=== PATIENT | female | born 1990 | race Caucasian/White ===

== ENCOUNTER 2017-10-01 18:27 | Emergency (ER) | payer OTHER ==
--- NOTE | 2017-10-01 18:43 | PDOC ---
Rapid Medical Evaluation Time Seen by Provider: 10/01/17 18:40 Medical Evaluation: Allergies Allergy/AdvReac Type Severity Reaction Status Date / Time No Known Allergies Allergy Verified 06/14/16 14:51 10/01/17 18:40 Pt presents to the ED: vag bleeding since this am, 17 weeks , sees Dr. Ma, c/o ruq pain Pt on brief exam: vss Pt ordered for: cbc, comp, t &s, u/s, ua, ucx Pt to proceed to the ED Discharge Disposition - Diagnosis Vaginal bleeding before 22 weeks gestation - Referrals - Patient Instructions - Post Discharge Activity
[2017-10-01 18:44] VITALS: BP 115/72; PULSE 70; TEMP 98.4; BMI 25.0
--- NOTE | 2017-10-01 22:26 | PDOC ---
History of Present Illness - History of Present Illness Initial Comments: 10/01/17 22:26 Patient is a 27-year-old ,[place] citizen speaking, female,, who presents to the emergency department for vaginal bleeding today. Patient states that her vaginal bleeding flows continuously and not only when she wipes. Patient states blood flow is heavier than when it first started. She denies blood clots. Her LMP was on 09/08/17. She has an appt on 10/05 for an and 10/16 regular appt. She denies any current abdominal pain or tenderness. Patient denies other complaints. 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 SUPERVISOR: Araceli Ma PMHx: migraines <Daisy Matthew - Last Filed: 10/01/17 22:37> <Inga Mccracken - Last Filed: 10/02/17 00:03> - General Chief Complaint: Vaginal Bleeding Stated Complaint: VAGINAL BLEEDING/17 WKS Time Seen by Provider: 10/01/17 18:40 Past History <Daisy Matthew - Last Filed: 10/01/17 22:37> - Immunization History Immunization Up to Date: Yes - Suicide/Smoking/Psychosocial Hx Smoking Status: No Smoking History: Never smoked Have you smoked in the past 12 months: No Number of Cigarettes Smoked Daily: 0 Cigars Per Day: 0 Hx Alcohol Use: No Drug/Substance Use Hx: No Substance Use Type: None <Inga Mccracken - Last Filed: 10/02/17 00:03> - Past Medical History Allergies/Adverse Reactions: Allergies Allergy/AdvReac Type Severity Reaction Status Date / Time No Known Allergies Allergy Verified 10/01/17 18:40 Home Medications: Ambulatory Orders No Home Medications 0 dose .ROUTE UTDICT 05/14/13 Ibuprofen 800 mg PO TID PRN #20 tablet 06/14/16 Review of Systems - Review of Systems Comments:: 10/01/17 22:26 CONSTITUTIONAL: Absent: fever, no chills, no fatigue EYES: Absent: visual changes ENT: Absent: ear pain, no sore throat CARDIOVASCULAR: Absent: chest pain, no palpitations RESPIRATORY: Absent: cough, no SOB GI: Absent: abdominal pain, no nausea, no vomiting, no constipation, no diarrhea GENITOURINARY: Absent: dysuria, no frequency, no hematuria FABRIC COATING SUPERVISOR: Present: vaginal bleeding MUSCULOSKELETAL: Absent: back pain, no arthralgia, no myalgia SKIN: Absent: rash NEURO: Absent: headache <Daisy Matthew - Last Filed: 10/01/17 22:37> *Physical Exam - Vital Signs Last Vital Signs Temp Pulse Resp BP Pulse Ox 98.4 F 70 19 115/72 100 10/01/17 18:41 10/01/17 18:41 10/01/17 18:41 10/01/17 18:41 10/01/17 18:41 - Physical Exam Comments: 10/01/17 22:26 GENERAL: Well-appearing, well-nourished. No apparent distress. HEENT: Normocephalic, atraumatic. PERRL, EOM intact. CARDIOVASCULAR: Normal S1, S2. Regular rate and rhythm. PULMONARY: Clear to auscultation bilaterally. ABDOMEN: Soft, non-distended, non-tender. EXTREMITIES: Normal ROM in all four extremities. No gross deformities. SKIN: Warm, dry. No rash NEUROLOGICAL: No focal neurological deficits. <Daisy Matthew - Last Filed: 10/01/17 22:37> - Vital Signs Last Vital Signs Temp Pulse Resp BP Pulse Ox 98.4 F 70 19 115/72 100 10/01/17 18:41 10/01/17 18:41 10/01/17 18:41 10/01/17 18:41 10/01/17 18:41 <Inga Mccracken - Last Filed: 10/02/17 00:03> ED Treatment Course - LABORATORY CBC & Chemistry Diagram: 10/01/17 21:30 10/01/17 21:30 - RADIOLOGY Radiograph Interpretation: 10/01/17 22:39 US Impression: Single viable intrauterine gestation (17 weeks 2days) Reported by: Fabrizio Juares MD <Daisy Matthew - Last Filed: 10/01/17 22:37> - LABORATORY CBC & Chemistry Diagram: 10/01/17 21:30 10/01/17 21:30 <Inga Mccracken - Last Filed: 10/02/17 00:03> *DC/Admit/Observation/Transfer - Attestations Scribe Attestion: 10/01/17 22:26 Documentation prepared by Daisy Matthew, acting as medical art therapist for Inga Mccracken MD. <Daisy Matthew - Last Filed: 10/01/17 22:37> <Inga Mccracken - Last Filed: 10/02/17 00:03> Diagnosis at time of Disposition: Vaginal bleeding before 22 weeks gestation - Discharge Dispostion Disposition: HOME Condition at time of disposition: Good - Referrals Referrals: Araceli Ma MD [Primary Care Provider] - - Patient Instructions Printed Discharge Instructions: DI for Threatened Additional Instructions: Please keep your ultrasound appointment on the Oct 05 and see your employee operations examiner at [facility] Print Language: MAORI - Post Discharge Activity
[2017-10-01 22:27] LABS: ALBUMIN 3.3 g/dl (3.4-5.0); ALK PHOS 48 U/L (45-117); ANION GAP 7 (8-16); BILIRUBIN,TOTAL 0.5 mg/dL (0.2-1.0); BLOOD UREA NITROGEN 8 mg/dL (7-18); CALCIUM 8.4 mg/dL (8.5-10.1); CHLORIDE 107 mmol/L (98-107); CO2 23 mmol/L (21-32); CREATININE 0.4 mg/dL (0.55-1.02); GLUCOSE,RANDOM 76 mg/dL (74-106); POTASSIUM 3.7 mmol/L (3.5-5.1); SGOT/AST 14 U/L (15-37); SGPT/ALT 22 U/L (12-78); SODIUM 137 mmol/L (136-145); TOT PROT 6.9 g/dl (6.4-8.2)
[2017-10-01 22:40] LABS: BASO % 0.5 % (0-2.0); EOS % 1.5 % (0-4.5); HEMATOCRIT 36.4 % (32.4-45.2); HEMOGLOBIN 12.5 GM/dL (10.7-15.3); LYMPH % 24.5 % (8-40); MCH 29.8 pg (25.7-33.7); MCHC 34.2 g/dl (32.0-36.0); MEAN CELL VOLUME 87.2 fl (80-96); MEAN PLT VOLUME 9.9 fl (7.5-11.1); MONO % 5.7 % (3.8-10.2); NEUT % 67.8 % (42.8-82.8); PLATELET COUNT 188 K/MM3 (134-434); RBC 4.18 M/mm3 (3.60-5.2); RDW 13.9 % (11.6-15.6); WHITE BLOOD COUNT 9.6 K/mm3 (4.0-10.0)
[2017-10-02 00:32] LABS: URINE APPEARANCE SLCLOUDY; URINE BILIRUBIN NEGATIVE (NEGATIVE); URINE BLOOD 2+ (NEGATIVE); URINE COLOR LTYELLOW; URINE GLUCOSE (UA) NEGATIVE (NEGATIVE); URINE KETONE TRACE (NEGATIVE); URINE LEUK ESTERASE NEGATIVE (NEGATIVE); URINE NITRITE NEGATIVE (NEGATIVE); URINE PROTEIN NEGATIVE (NEGATIVE); URINE UROBILINOGEN NEGATIVE mg/dL (0.2-1.0)
[2017-10-02 01:01] LABS: EPI CELLS FEW /HPF (FEW); URINE HYALINE CAST 1 /lpf; URINE MUCUS RARE
== END 2017-10-02 04:53 | disposition home or self-care (01) ==
LOC: JER 18:27
DX: O26.892 Other specified pregnancy related conditions, second trimester (principal); O46.92 Antepartum hemorrhage, unspecified, second trimester; Z3A.17 17 weeks gestation of pregnancy
CPT/HCPCS: 36415; 76801-TC; 80053; 81003; 81015; 83735; 85025; 86850; 86900; 86901; 87086; 99282-25

== ENCOUNTER 2018-03-05 08:21 | Emergency (ER) | payer OTHER ==
[2018-03-05 08:28] VITALS: TEMP 98.1; BMI 27.9
--- NOTE | 2018-03-05 08:32 | PDOC ---
History of Present Illness - General Chief Complaint: Headache Stated Complaint: HEADACHE, ARM NUMBNESS (BOTH) 27 WKS Time Seen by Provider: 03/05/18 08:31 - History of Present Illness Initial Comments: 03/05/18 08:31 27 yo Taiwanese speaking F, at 37 wga, LMP 09/08/17, and h/o migraines who p/ w HUYNH. 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 Patient states that beginning Sunday (03-04-18) she has been experiencing intermittent HUYNH daily lasting 3 hours and improving with supine positioning in bed. HUYNH reproducible with erect positioning. Patient states that it feels that "marble is rolling around in her head," but denies vertiginous sensation.HUYNH is dull frontal HUYNH with radiation to posterior head in holocranial distribution. HUYNH associated with tingling in left upper extremity and radiates from shoulder down to arm. Patient states that this has happened before and she has been seen in ED (12/06/15) with negative workup. No associated weakness, convulsions, photophobia, phonophobia, scintillating scotomas, or floaters in visual travis. Has not attempted OTC symptom control. Nml movement. + Intermittent dysuria. Denies F/C, cough, neck pain/stiffness, tinnitus, hearing loss, vision change, N /V, CP, SOB, abdominal pain, vaginal bleeding/discharge/itching, diarrhea, constipation, BPR, urinary complaints, hematuria, weakness, lightheadedness, sensory changes. PMHx: as noted above. 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 Denies h/o head trauma, seizure disorder, CVA/TIA. Does not follow with neurology, or take ppx migraine medication. Surgical: 2 prior C-sections ROS: as noted above SHx: Denies Etoh, tobacco, IVDA, Caffeine. Allergies: NKDA Past History - Past Medical History Allergies/Adverse Reactions: Allergies Allergy/AdvReac Type Severity Reaction Status Date / Time No Known Allergies Allergy Verified 03/05/18 08:23 Home Medications: Ambulatory Orders No122/Iron/Folic Acid [ Multi Tablet] 1 each PO DAILY 03/05/18 COPD: No Other medical history: MIGRAINES - Immunization History Immunization Up to Date: Yes - Suicide/Smoking/Psychosocial Hx Smoking Status: No Smoking History: Never smoked Have you smoked in the past 12 months: No Number of Cigarettes Smoked Daily: 0 Cigars Per Day: 0 Information on smoking cessation initiated: No Hx Alcohol Use: No Drug/Substance Use Hx: No Substance Use Type: None Review of Systems - Review of Systems Comments:: 03/05/18 08:31 GENERAL/CONSTITUTIONAL: No fever or chills. No weakness. HEAD, EYES, EARS, NOSE AND THROAT: No change in vision. No ear pain or discharge. No sore throat. CARDIOVASCULAR: No chest pain or shortness of breath RESPIRATORY: No cough, wheezing, or hemoptysis. GASTROINTESTINAL: No nausea, vomiting, diarrhea or constipation. GENITOURINARY: No dysuria, frequency, or change in urination. MUSCULOSKELETAL: No joint or muscle swelling or pain. No neck or back pain. SKIN: No rash NEUROLOGIC: + HUYNH, and change in sensation/LUE. No vertigo, loss of consciousness , or change in strength/sensation. ENDOCRINE: No increased thirst. No abnormal weight change HEMATOLOGIC/LYMPHATIC: No anemia, easy bleeding, or history of blood clots. ALLERGIC/IMMUNOLOGIC: No hives or skin allergy. 06 *Physical Exam - Vital Signs Last Vital Signs Temp Pulse Resp BP Pulse Ox 98.1 F 70 18 110/70 100 03/05/18 08:23 03/05/18 08:23 03/05/18 08:23 03/05/18 08:23 03/05/18 08:23 - Physical Exam Comments: 03/05/18 08:31 GENERAL: Awake, alert, and fully oriented, in no acute distress HEAD: No signs of trauma, normocephalic, atraumatic EYES: PERRLA, EOMI, sclera anicteric, conjunctiva clear ENT: Auricles normal inspection, hearing grossly normal, nares patent, oropharynx clear without exudates. Moist mucosa NECK: Normal ROM, supple, no lymphadenopathy, JVD, or masses LUNGS: No distress, speaks full sentences, clear to auscultation bilaterally HEART: Regular rate and rhythm, normal S1 and S2, no murmurs, rubs or gallops, peripheral pulses normal and equal bilaterally. ABDOMEN: Soft, nontender, normoactive bowel sounds. No guarding, no rebound. No masses EXTREMITIES : Normal inspection, Normal range of motion, no edema. No clubbing or cyanosis. NEUROLOGICAL: Cranial nerves II through XII grossly intact. Normal speech, normal gait, no focal sensorimotor deficits. Absent dysmetria on FTN. Nml AJ, and HTS. SKIN: Warm, Dry, normal turgor, no rashes or lesions noted ED Treatment Course - LABORATORY CBC & Chemistry Diagram: 03/05/18 09:11 03/05/18 09:11 Medical Decision Making - Medical Decision Making 03/05/18 08:32 27 yo Taiwanese speaking F, , LMP 09/08/17, and h/o migraines who p/w frontal- occipital HUYNH x 2 days. VSS, AF, A&Ox3. Low suspicion of preclampsia. BP 110/70, and patient with absent focal neuro deficits, or other evidence of end organ dysfunction. Absent nuchal findings or suspicion of meningitis. HUYNH most likely 2 /2 tension type HUYNH vs. migraine without aura. Consistent with HUYNH's in past. ED Course: CBC, CMP, BHCG 03/05/18 09:53 CBC: Unremarkable 03/05/18 10:54 CMP: Unremarkable HC UA: Neg HUYNH slightly improved. VSS. Patient stable for d/c with return precautions. Will precede to L&D for monitoring. 03/05/18 11:02 Spoke to L&D. Patient stable to send upstairs. *DC/Admit/Observation/Transfer Diagnosis at time of Disposition: Tension type headache, unspecified Qualifiers: Headache chronicity pattern: acute headache Intractability: not intractable Qualified Code(s): G44.209 - Tension-type headache, unspecified, not intractable - Discharge Dispostion Condition at time of disposition: Stable Decision to Admit order: No - Referrals Referrals: Manuel Mchugh DO [Staff Physician] - - Patient Instructions Printed Discharge Instructions: DI for Hormonal and Tension Headaches Additional Instructions: Please return to the emergency department with any new or worsening symptoms or concerns. Please follow up with your primary care physician within 72 hours. Please follow up with neurology within 1-2 weeks. - Post Discharge Activity - Attestations Physician Attestion: 03/05/18 08:32 I attest to the information provided in this note.
[2018-03-05] MEDS ORDERED: ACETAMINOPHEN 325 MG TABLET (FP) PO ONE (08:55)
[2018-03-05] MEDS ORDERED: ACETAMINOPHEN 325 MG TABLET (FP) ONE (09:18)
[2018-03-05 09:26] LABS: BASO % 0.5 % (0-2.0); EOS % 1.4 % (0-4.5); HEMOGLOBIN 11.7 GM/dL (10.7-15.3); LYMPH % 17.6 % (8-40); MCH 28.8 pg (25.7-33.7); MCHC 34.4 g/dl (32.0-36.0); MEAN CELL VOLUME 83.7 fl (80-96); MEAN PLT VOLUME 10.1 fl (7.5-11.1); MONO % 6.5 % (3.8-10.2); PLATELET COUNT 177 K/MM3 (134-434); RBC 4.06 M/mm3 (3.60-5.2); RDW 14.2 % (11.6-15.6); WHITE BLOOD COUNT 8.5 K/mm3 (4.0-10.0)
[2018-03-05] MEDS ORDERED: METOCLOPRAMIDE HCL 10 MG TABLET (FP) PO ONE ×2 (09:45→10:16)
[2018-03-05 09:53] LABS: URINE APPEARANCE SLCLOUDY; URINE BILIRUBIN NEGATIVE (<2.0 mg/dL); URINE BLOOD NEGATIVE (NEGATIVE); URINE COLOR LTYELLOW; URINE GLUCOSE (UA) NEGATIVE (NEGATIVE); URINE KETONE NEGATIVE (NEGATIVE); URINE LEUK ESTERASE NEGATIVE (NEGATIVE); URINE NITRITE NEGATIVE (NEGATIVE); URINE PROTEIN NEGATIVE (NEGATIVE); URINE UROBILINOGEN NEGATIVE mg/dL (0.2-1.0)
[2018-03-05 09:54] LABS: ALBUMIN 2.7 g/dl (3.4-5.0); ANION GAP 11 (8-16); BLOOD UREA NITROGEN 4 mg/dL (7-18); CALCIUM 8.3 mg/dL (8.5-10.1); CHLORIDE 108 mmol/L (98-107); CO2 18 mmol/L (21-32); GLUCOSE,RANDOM 77 mg/dL (74-106); POTASSIUM 3.8 mmol/L (3.5-5.1); SODIUM 137 mmol/L (136-145)
[2018-03-05 09:58] LABS: ALK PHOS 210 U/L (45-117); BILIRUBIN,TOTAL 0.4 mg/dL (0.2-1.0); CREATININE 0.4 mg/dL (0.55-1.02); SGOT/AST 12 U/L (15-37); SGPT/ALT 14 U/L (12-78); TOT PROT 6.4 g/dl (6.4-8.2)
--- NOTE | 2018-03-05 10:06 | PDOC ---
Attending Attestation - Resident Resident Name: Faisal Wilkesson - ED Attending Attestation I have performed the following: I have examined & evaluated the patient, The case was reviewed & discussed with the resident, I agree w/resident's findings & plan - HPI HPI: 03/05/18 10:00 27y/o F at 37.5 weeks gestation of otherwise uneventful with h/o migraines p/w headache for 1-2 days. Gradual onset mild generalized headache for two days, had prodrome of light headedness evening prior then woke up the following morning with her typical headache. no n/v/vision change/speech change/ f/c/neck stiffness/focal weakness. Admits to some L arm paresthesias, which she' s had with migraines in the past. was on meds for migraines in the past, none now. - Physicial Exam PE: 03/05/18 10:04 VSS, BP normal, afebrile, gravid abdomen. Lying in stretcher eyes open speaking full sentences in NAD neck supple, no sinus ttp, no LAD neuro exam normal, sensation intact, nvi - Medical Decision Making 03/05/18 10:06 27y/o F 37wks gestation normal p/w exacerbation of her otherwise chronic and underlying primary headache syndrome. no red flags on history or PE to suggest infectious of vascular process, BP normal, well appearing. trial of tylenol, reglan, ivf no indication for imaging will proceed to L+D for monitoring after meds and reassessment
[2018-03-05 13:21] VITALS: BP 98/58; PULSE 72
== END 2018-03-05 13:15 | disposition home or self-care (01) ==
LOC: JER 08:21
DX: G44.209 Tension-type headache, unspecified, not intractable (principal); O26.892 Other specified pregnancy related conditions, second trimester; Z3A.27 27 weeks gestation of pregnancy
CPT/HCPCS: 36415; 80053; 81003; 84702; 85025; 87086; 99283-25

== ENCOUNTER 2018-03-13 06:20 | Inpatient (IN) | payer OTHER ==
[2018-03-13] MEDS ORDERED: ELECTROLYTE-148 SOLN 500 ML IV ONE (06:30)
[2018-03-13] MEDS ORDERED: CITRIC ACID/SODIUM CITRATE 30 ML UNIT-DOSE CUP PO ONE (06:35)
[2018-03-13 06:58] VITALS: BMI 30.8
[2018-03-13] MEDS ORDERED: ELECTROLYTE-148 SOLN 1,000 ML IV SCH (07:00)
--- NOTE | 2018-03-13 08:02 | HP ---
Past Medical History - Primary Care Physician PCP:: Melyssa Briones - Admission Chief Complaint: 27 yrs , , 39 weeks, previous c/sx2, requests for repeat c/s & requests for voluntory sterlization History of Present Illness: pnc at , [facility] wt gain 26 lbs work up :08/07/17 AB pos, Hbsag neg, Rpr nr, Rubella immune, Hiv neg, Sickle neg , pap nilm, gc/ct neg 12/07/17 1 hr Gtt 95, Rpr nr, Quantiferon neg 02/21/18 Gbs neg, gc/ct neg , h/h 11.2/33.4 , plt 183 , hiv neg Growth sono done by M. , early pregn lo lying placenta, later on resolved Neg NT screen, & modified sequential Last sono 02/22/18 36.3 wks, cephalic , ant lat lat placenta , efw 6'15", deborah 13.4, bpp 05/01 History Source: Patient, Medical Record Limitations to Obtaining History: No Limitations - Past Medical History HAIR WEAVER: No: Migraine, Seizure Cardiovascular: No: HTN Pulmonary: Yes: Other (c/o common cold for last 8 days , no h/o fever). No: Asthma Gastrointestinal: Yes: Constipation Hepatobiliary: No: Cholelithiasis, Hepatitis B Renal/: No: UTI ...: 3 ...Para: 2 ( 11/01/06primary c/s 5"at 37 wks, Repeat C/section 07/24/11 39 wks 8 ' ) ...Term: 2 ...: 0 ...Spon : 0 ...Induced : 0 ...Multiple Gestation: 0 ...LMP: 06/03/17 ... Weeks Gestation by Dates: 40.3 ...EDC by Dates: 03/10/18 ...EDC by Sono: 03/19/18 (39 weeks by sono ) Heme/Onc: Yes: Anemia Infectious Disease: No: AIDS, HIV, STD's, Tuberculosis Psych: No: Addictions, Anxiety, Bipolar, Depression, Psychosis, Schizophrenia Endocrine: No: Diabetes Mellitus, Hyperthyroidism, Hypothyroidism - Past Surgical History Past Surgical History: Yes: (10/2006, 06/2011) Hx Myomectomy: No Hx Transabdominal Cerclage: No - Smoking History Smoking history: Never smoked Have you smoked in the past 12 months: Yes Aproximately how many cigarettes per day: 0 - Alcohol/Substance Use Hx Alcohol Use: No History of Substance Use: reports: None Home Medications - Allergies Allergies/Adverse Reactions: Allergies Allergy/AdvReac Type Severity Reaction Status Date / Time No Known Allergies Allergy Verified 03/13/18 07:59 - Home Medications Home Medications: Ambulatory Orders No122/Iron/Folic Acid [ Multi Tablet] 1 each PO DAILY 03/05/18 Physical Exam - Maternity Vital Signs: Vital Signs Temperature 97.9 F 03/13/18 06:45 Pulse Rate 65 03/13/18 06:45 Respiratory Rate 20 03/13/18 06:45 Blood Pressure 109/68 03/13/18 06:45 O2 Sat by Pulse Oximetry (%) Selected Entries 03/13/18 06:34 Weight 174 lb Constitutional: Yes: Well Nourished, Obese Eyes: Yes: WNL HENT: Yes: WNL, Nasal Congestion Neck: Yes: WNL Cardiovascular: Yes: WNL, Regular Rate and Rhythm Lungs: Clear to auscultation Breast(s): Yes: WNL. No: Mass - Abdominal Exam/OB Fundal Height: 38 Number of Fetuses: Single Presentation: Vertex Contractions: No Monitor Mode: External Heart Rate (range): 120 Heart Rate Location: Midline Category: I - Vaginal Exam/OB Vaginal Bleediing: No Speculum Exam: No Dilatation (cm): close Effacement (%): unefface Amniotic Membrane Status: Intact Presentation: Vertex/Position Station: -3 - Physical Exam Musculoskeletal: Yes: WNL Extremities: Yes: WNL. No: Calf Tenderness Edema: LLE: Trace, RLE: Trace Integumentary: Yes: Incision (old pfannesteil scar) Deep Tendon Reflex Grade: Normal +2 ...Motor Strength: WNL Psychiatric: Yes: WNL, Alert, Oriented - Labs Lab Results: Laboratory Tests 03/07/18 03/07/18 03/07/18 10:35 10:35 10:35 WBC 7.9 RBC 4.03 Hgb 11.6 Hct 34.1 Plt Count 166 PT with INR 11.30 INR 1.00 Sodium Potassium Chloride Carbon Dioxide BUN Creatinine Creat Clearance w eGFR Random Glucose Calcium AST ALT Urine Protein Negative Ur Leukocyte Esterase 1+ H Urine WBC (Auto) 1 Urine RBC (Auto) <1 03/07/18 10:35 WBC RBC Hgb Hct Plt Count PT with INR INR Sodium 139 Potassium 3.7 Chloride 108 H Carbon Dioxide 19 L BUN 4 L Creatinine 0.5 L Creat Clearance w eGFR > 60 Random Glucose 107 H Calcium 8.5 AST 11 L ALT 15 Urine Protein Ur Leukocyte Esterase Urine WBC (Auto) Urine RBC (Auto) Hemorrhage Risk Assessment - Risk Factors Medium Risk Factors: Yes: Prior , uterine surgery,or multiple laparotomies Risk Score: 1 Risk Level: Medium Risk Problem List - Problems (1) with 39 completed weeks gestation Code(s): Z3A.39 - 39 WEEKS GESTATION OF (2) Previous section complicating Code(s): O34.219 - MATERNAL CARE FOR UNSP TYPE SCAR FROM PREVIOUS DEL (3) Multiparity Code(s): Z64.1 - PROBLEMS RELATED TO MULTIPARITY Assessment/Plan 27 yrs , previous c/s x2 , requests for repeat c/s & voluntory sterlization Plan Repeat c/section + BTL
[2018-03-13] MEDS ORDERED: morphine SULFATE/Preservative Free 0.5 MG/ML (1cc Syringe) ONE (08:16)
[2018-03-13] MEDS ORDERED: EPINEPHrine/PF 1 MG/1 ML (1:1,000) AMPULE ONE (08:16)
[2018-03-13] MEDS ORDERED: BUPIVACAINE 0.75% IN DEXTROSE/PF 2ML AMPULE NR ONE (08:17)
[2018-03-13] MEDS ORDERED: OXYTOCIN 20 UNITS in 0.9% NS 40 UNIT/2,000 ML INFUS.BAG IV ONE (08:17)
[2018-03-13] MEDS ORDERED: ePHEDrine SULFATE 50 MG/1 ML AMPULE ONE (08:35)
[2018-03-13] MEDS ORDERED: ONDANSETRON 4 MG/2 ML VIAL IVPUSH PRN (08:38)
[2018-03-13] MEDS ORDERED: SENNOSIDES/DOCUSATE COMBO (SENNA PLUS) TABLET (UD) PO PRN (10:12)
[2018-03-13] MEDS ORDERED: METHYLERGONOVINE MALEATE 0.2 MG/1 ML AMP IM PRN (10:12)
[2018-03-13 10:17] LABS: ARTERIAL BLD GAS O2 SATURATION 71.5 % (90-98.9)
[2018-03-13 10:18] LABS: ARTERIAL BLOOD GAS BASE EXCESS -2.5 meq/l (-2-2)
[2018-03-13 10:25] LABS: ARTERIAL BLOOD GAS pH 7.34 (7.35-7.45)
[2018-03-13 10:26] LABS: VENOUS PH 7.34 (7.32-7.42)
[2018-03-13 10:27] LABS: VENOUS PO2 31.7 mmHg (28-48)
--- NOTE | 2018-03-13 10:35 | PN ---
Delivery - Delivery Section: Repeat, Low Flap Transverse (& BTL) Type of Anesthesia: Spinal Episiotomy/Laceration: None EBL (cc): 700 (kapadia out put 200 ml charli color urine intraop ) Delivery, Single - Stages of Labor Date of Delivery: 03/13/18 Time of Delivery: 08:45 Time Placenta Delivered: 08:46 Placenta: Yes: Manual Removal, Uterine Exploration - Condition of French Translator/Head Waiter/Waitress Banquet Present: Yes Name: Zoraida Villarreal Gender: Male Weight: 8 lb 5 oz Position: Right, OT Total Hours ROM (Hrs/Mins): 0/2 - 1 Minute Total Score: 9 5 Minutes Total Score: 9 - Feeding Plan Initial Plan: Elected not to breastfeed exclusively throughout hospitalization Remarks - Remarks Remarks: 27 yrs ,pnc at , [facility] Indication c/section : 39 weeks, previous c/section x2 & voluntory sterlization ( Multiparity) Intraop vaccum assist delivery of head from ROT position . Intraop 2 gm iv Ancef given
--- NOTE | 2018-03-13 10:41 | OP ---
Operative Note - Note: Operative Date: 03/13/18 Pre-Operative Diagnosis: 39 weeks, Previous c/section x2, Voluntory Sterlization ( Multiparity ) Operation: Repet LFTC/Section & BTL Findings: 8.45 AM , baby Boy Rot position delivered with vaccum assist head delivery , 9/9 , WT 8'5" DR Villarreal Claims Customer Service Representative present in the room . Both ovaries normal Both tubes ligated & cut by modified Eva technique in mid ampulary porion Surgeon: Melyssa Briones Generator Man: Ronnie Garcia Anesthesiologist/SENIOR POLICY ASSOCIATE: Bhargav Stokes Anesthesia: Spinal Specimens Removed: cord segment for cod gas. cord blood. placenta Estimated Blood Loss (mls): 700 Drains, Volume Out (mls): 200 (charli color kapadia out put ) Fluid Volume Replaced (mls): 1,500 (IV ancef 2 gm prior to incision ) Operative Report Dictated: Yes
[2018-03-13] MEDS: OXYTOCIN 20 UNITS in 0.9% NS 20 UNIT/1,000 ML INFUS.BAG IV SCH (10:50)
--- NOTE | 2018-03-13 13:27 | OP ---
DATE OF OPERATION: 03/13/2018 PREOPERATIVE DIAGNOSES: Thirty-nine weeks, previous section x2 and multiparity, voluntary sterilization. OPERATION DONE: Repeat low flap transverse section and bilateral tubal ligation. SURGEON: Melyssa Briones MD NON DESTRUCTIVE EVALUATION TECHNICIAN: MICHAEL Uriarte ANESTHESIOLOGIST: Bhargav Stokes MD ANESTHESIA: Spinal. FINDINGS: This is a 27-year-old 3, para 2-0-0-2, previous c-sections x2 , was not in labor and request for repeat section and tubal ligation. Cervix was closed. PROCEDURE: Patient's abdomen was shaved/prepped. Toro catheter was placed. She was taken to the operating room table and then spinal anesthesia was given. Patient was placed in supine position. Abdomen was painted and draped in usual manner. Anesthesia level was checked and then Pfannenstiel incision was made through previous scar, skin, subcutaneous tissue. Anterior rectus sheath was incised transversely. Bleeding points were clamped and cauterized. Rectus muscle was from the rectus sheath. Then parietal peritoneum was opened vertically. Low flap bladder peritoneum was incised transversely and the lower uterine segment was isolated and incised transversely and the fluid was clear and a large amount. Baby was in ROT position, kept slipping upward and then baby was brought down into the incision and with the Mityvac vacuum cup the baby was delivered from ROT position. Vacuum cup was released and the baby's rest of the body was delivered. Immediate oral and nasal suction was done and then cord was clamped and cut. Baby was handed over to the work station support specialist, present in the OR and then the cord segment was given for the cord blood gas. Cord blood was collected. Placenta was removed completely with the membranes. Uterine cavity was cleaned and the closure of the uterine incision was done in 2 layers. First layer was a continuous locking with Biosyn 0 suture. Hemostasis was verified and 2nd layer was continuous locking with vertical mattress sutures was taken imbricating the 1st layer. Hemostasis verified once again and interrupted sutures were taken in the bladder peritoneum. Both ovaries were normal. First the right tube and then the left tube was ligated, clamped by the modified [place] technique and the mid ampullary portion of the tube on the right side was doubly ligated with 2-0 plain catgut and the portion of the tube was cut above it and the endosalpinx was cauterized. Hemostasis was checked. Similar procedure also was done on the left tube. Before doing the resection of the tubes the fimbriae were confirmed. Then the irrigation was done. Hemostasis of the uterine incision and both the tube sites was confirmed once more. The sponge, instrument, needle count was correct and then the closure of the abdomen was done. Parietal peritoneum was closed with a Vicryl 0 suture. Rectus muscle was approximated with interrupted Vicryl 0 suture. Hemostasis was checked underneath the rectus sheath and rectus sheath was closed with a Vicryl 0 continuous suture. Hemostasis was checked and then subcutaneous tissue hemostasis was verified. Subcutaneous tissue was approximated with interrupted Vicryl sutures and then skin was approximated with marie. Pressure dressing was given. Blood clots were removed from the vagina and the patient tolerated procedure well. She was transferred to the recovery room in stable condition. She received 2 g of IV Ancef prior to the incision and estimated blood loss was 700 mL and IV fluid taken intraoperative was 1500 mL. Urine output was intraoperative 200 mL and it was charli-colored urine. Christin [id number] MTDD
[2018-03-13] MEDS ORDERED: ceFAZolin SODIUM 1 GM VIAL ONE ×2 (16:16→23:34)
[2018-03-13] MEDS ORDERED: DEXTROSE 5%-WATER - 50 ML IVPB ONE ×2 (16:16→23:34)
[2018-03-13] MEDS: CEFAZOLIN 1 GM in DEXTROSE 5%-WATER - 50 ML IVPB SCH (16:23)
[2018-03-13] MEDS: IBUPROFEN 800 MG/8 ML IJ IVPB PRN (17:24)
[2018-03-14] MEDS: CEFAZOLIN 1 GM in DEXTROSE 5%-WATER - 50 ML IVPB SCH ×2 (00:16→07:29)
[2018-03-14] MEDS: IBUPROFEN 800 MG/8 ML IJ IVPB PRN (04:01)
[2018-03-14] MEDS ORDERED: oxyCODONE HCL 5 MG TABLET PO PRN ×2 (06:00)
[2018-03-14] MEDS ORDERED: ceFAZolin SODIUM 1 GM VIAL ONE (07:24)
[2018-03-14] MEDS ORDERED: DEXTROSE 5%-WATER - 50 ML IVPB ONE (07:24)
[2018-03-14 08:50] LABS: BASO % 0.5 % (0-2.0); EOS % 0.7 % (0-4.5); HEMATOCRIT 31.1 % (32.4-45.2); HEMOGLOBIN 10.8 GM/dL (10.7-15.3); LYMPH % 13.7 % (8-40); MCH 28.8 pg (25.7-33.7); MCHC 34.6 g/dl (32.0-36.0); MEAN CELL VOLUME 83.4 fl (80-96); NEUT % 79.1 % (42.8-82.8); PLATELET COUNT 161 K/MM3 (134-434); RBC 3.73 M/mm3 (3.60-5.2); RDW 14.4 % (11.6-15.6); WHITE BLOOD COUNT 8.2 K/mm3 (4.0-10.0)
[2018-03-14] MEDS: ENOXAPARIN NA (PORCINE) 40 MG/0.4 ML DISP.SYRIN SQ SCH (10:00)
[2018-03-14] MEDS: SIMETHICONE 80 MG TAB.CHEW (FP) PO PRN ×2 (10:00→21:06)
[2018-03-14] MEDS: PRENATAL VITAMINS W/ FOLIC ACID TABLET (FP) PO SCH (10:00)
[2018-03-14] MEDS ORDERED: BISACODYL 10 MG SUPP.RECT RC PRN (10:12)
--- NOTE | 2018-03-14 11:42 | PN ---
Post Progress Note - Subjective Subjective: 27 yo Para 3 status post repeat , seen and evaluated. Doing well. Post Day: 1 Type of Delivery: Repeat C/S Vital Signs: Vital Signs Temperature 97.2 F L 03/14/18 07:43 Pulse Rate 69 03/14/18 07:43 Respiratory Rate 20 03/14/18 09:00 Blood Pressure 106/62 03/14/18 07:43 O2 Sat by Pulse Oximetry (%) 100 03/13/18 10:45 Breast Exam: Yes: Soft Uterus: Yes: Fundus @ umbilicus Incision: Yes: Dressing dry and intact Abdomen/GI: Yes: Abdomen soft, Tolerating PO Lochia: Yes: Rubra Lochia, amount: Small Extremities: Yes: Calves non-tender Perineum: Yes: Intact Activity: Ambulating - Labs Labs: CBC WBC 8.2 K/mm3 (4.0-10.0) 03/14/18 08:00 RBC 3.73 M/mm3 (3.60-5.2) 03/14/18 08:00 Hgb 10.8 GM/dL (10.7-15.3) 03/14/18 08:00 Hct 31.1 % (32.4-45.2) L 03/14/18 08:00 MCV 83.4 fl (80-96) 03/14/18 08:00 MCH 28.8 pg (25.7-33.7) 03/14/18 08:00 MCHC 34.6 g/dl (32.0-36.0) 03/14/18 08:00 RDW 14.4 % (11.6-15.6) 03/14/18 08:00 Plt Count 161 K/MM3 (134-434) 03/14/18 08:00 MPV 10.0 fl (7.5-11.1) 03/14/18 08:00 Absolute Neuts (auto) 6.5 # 03/14/18 08:00 Neutrophils % 79.1 % (42.8-82.8) 03/14/18 08:00 Lymphocytes % 13.7 % (8-40) D 03/14/18 08:00 Monocytes % 6.0 % (3.8-10.2) 03/14/18 08:00 Eosinophils % 0.7 % (0-4.5) 03/14/18 08:00 Basophils % 0.5 % (0-2.0) 03/14/18 08:00 Nucleated RBC % 0 % (0-0) 03/14/18 08:00 Problem List - Problems (1) Status post repeat low transverse section Code(s): Z98.891 - HISTORY OF UTERINE SCAR FROM PREVIOUS SURGERY Assessment/Plan Status post repeat Stable Ambulation Analgesia as needed Continue routine post op care
[2018-03-14] MEDS: IBUPROFEN 600 MG TABLET (FP) PO PRN ×2 (12:27→21:07)
[2018-03-14] MEDS: ACETAMINOPHEN 325 MG TABLET (FP) PO PRN ×2 (12:27→21:06)
--- NOTE | 2018-03-14 13:47 | PN ---
Progress Note (short form) - Note Progress Note: Anesthesia POD#1 S/P under Spinal anesthesia and Duramorph VSS,no N/V,moving all extremities,mild itch. Pain is under control. Elizabeth Mireles MD.
[2018-03-14] MEDS: FERROUS SO4 325 MG TABLET (FP) PO SCH (21:06)
--- NOTE | 2018-03-15 06:51 | PN ---
Progress Note (short form) - Note Progress Note: pod 2 , has mild cramps, no excess vaginal bleeding CBC, BMP 03/14/18 08:00 Last Vital Signs Temp Pulse Resp BP Pulse Ox 97.7 F 71 20 104/66 100 03/14/18 22:00 03/14/18 22:00 03/14/18 22:00 03/14/18 22:00 03/13/18 10:45 abdomen soft , no distension , no cva incision dry, clean no calf tenderness no excess vaginal bleeding plan ambulate , cbc in am
[2018-03-15] MEDS: PRENATAL VITAMINS W/ FOLIC ACID TABLET (FP) PO SCH (09:06)
[2018-03-15] MEDS: SIMETHICONE 80 MG TAB.CHEW (FP) PO PRN ×2 (09:06→15:06)
[2018-03-15] MEDS: FERROUS SO4 325 MG TABLET (FP) PO SCH ×2 (09:06→21:53)
[2018-03-15] MEDS: IBUPROFEN 600 MG TABLET (FP) PO PRN ×2 (09:07→15:07)
[2018-03-15] MEDS: ACETAMINOPHEN 325 MG TABLET (FP) PO PRN ×2 (09:07→15:07)
[2018-03-15] MEDS: ENOXAPARIN NA (PORCINE) 40 MG/0.4 ML DISP.SYRIN SQ SCH (09:07)
[2018-03-15] MEDS: OXYTOCIN 20 UNITS in 0.9% NS 20 UNIT/1,000 ML INFUS.BAG IV SCH (16:40)
[2018-03-16] MEDS: ACETAMINOPHEN 325 MG TABLET (FP) PO PRN (05:53)
[2018-03-16] MEDS: IBUPROFEN 600 MG TABLET (FP) PO PRN (05:53)
--- NOTE | 2018-03-16 07:16 | DS ---
Physical Exam-[employer] [facility] Vital Signs: Vital Signs Temperature 98.3 F 03/15/18 22:00 Pulse Rate 78 03/15/18 22:00 Respiratory Rate 20 03/15/18 22:00 Blood Pressure 110/65 03/15/18 22:00 O2 Sat by Pulse Oximetry (%) 100 03/13/18 10:45 Constitutional: Yes: Well Nourished Eyes: Yes: WNL HENT: Yes: WNL Neck: Yes: WNL Cardiovascular: Yes: WNL Respiratory: Yes: WNL Gastrointestinal: Yes: WNL, Normal Bowel Sounds, Soft, Other (bm done). No: Distention ...Rectal Exam: Yes: WNL Renal/: Yes: WNL, Other (voiding without difficulty) ....Post : Yes: Uterus firm, Uterus non-tender, Moderate lochia rubra Breast(s): Yes: WNL (engorged , pt is BF) Extremities: Yes: WNL. No: Calf Tenderness Wound/Incision: Yes: Clean/Dry, Well Approximated, Rodo Intact, Open to air. No: Reddened, Bleeding, Excoriated Neurological: Yes: WNL, Alert, Oriented ...Motor Strength: WNL Psychiatric: Yes: WNL, Alert, Oriented Delivery - Delivery Section: Repeat, Low Flap Transverse (& BTL) Type of Anesthesia: Spinal Episiotomy/Laceration: None EBL (cc): 700 (kapadia out put 200 ml charli color urine intraop ) Delivery, Single - Stages of Labor Date of Delivery: 03/13/18 Time of Delivery: 08:45 Time Placenta Delivered: 08:46 Placenta: Yes: Manual Removal, Uterine Exploration - Condition of Infant Student Counsellor/Wheel Blocker Present: Yes Name: Zoraida Villarreal Gender: Male Weight: 8 lb 5 oz Position: Right, OT Total Hours ROM (Hrs/Mins): 0/2 - 1 Minute Total Score: 9 5 Minutes Total Score: 9 - [place] Feeding Plan Initial Plan: Elected not to breastfeed exclusively throughout hospitalization Remarks - Remarks Remarks: 27 yrs ,pnc at 2, [facility] Indication c/section : 39 weeks, previous c/section x2 & voluntory sterlization ( Multiparity) Intraop vaccum assist delivery of head from ROT position . Intraop 2 gm iv Ancef given . post op course uneventful she will rtc for rodo removal discharge 03/16/18 Discharge Summary Reason For Visit: REPEAT Current Active Problems Multiparity (Acute) with 39 completed weeks gestation (Acute) Previous section complicating (Acute) Status post repeat low transverse section (Acute) Condition: Stable - Instructions Diet, Activity, Other Instructions: Post Instructions DIET: Continue good diet high in protein, calcium, and iron rich foods. Drink at least eight (8) glasses of water daily in addition to other fluids. ct Regular diet MEDICATIONS: Continue vitamins and iron as previously directed. Motrin and Tylenol may be taken for minor discomfort. ACTIVITY: Mild to moderate exercise may be started in two (2) weeks. Take frequent rest periods. Resume normal activity after six (6) week check up. WOUND CARE OF OPERATIVE SITE: Continue use of perineal bottle until vaginal discharge stops. Keep area clean. Shower daily. Keep abdominal wound dry. Report any drainage or redness to physician. Tub baths, tampons and douches are not permitted for [address] Breast feeding & or Bottle feeding BREAST CARE: (For those that are not breast feeding): If engorgement occurs: Wear tight fitting bra. Take Tylenol or Motrin for pain. Apply cold packs (ice in bags to each breast ) FAMILY PLANNING: There are many control alternatives to pursue and they should be discussed at your first office visit. You may resume sexual activity after your six (6) week check up. (Remember, breast feeding is not a contraceptive) NEXT PHYSICIAN APPOINTMENT: Be certain to call for a one (1) week appointment, unless otherwise directed. RTC 1 week , for rodo removal Call Clinic or got to Emergency Dept if you have any of the following: Heavy vaginal bleeding Painful urination Leg pain Unusual odor noted to vaginal bleeding High fever Red streaking noted on breast Regular diet No douching, no sexual intercourse F/U in clinic in 6 weeks Referrals: Melyssa Briones MD [Staff Physician] - Disposition: HOME - Home Medications Comprehensive Discharge Medication List: Ambulatory Orders No122/Iron/Folic Acid [ Multi Tablet] 1 each PO DAILY 03/05/18 Acetaminophen [Tylenol .Regular Strength -] 500 mg PO Q4H PRN #30 tablet Ferrous Sulfate [Feosol] 325 mg PO DAILY #30 tab 03/15/18 Ibuprofen [Motrin -] 600 mg PO Q4H PRN #30 tablet 03/15/18 Vitamins (Sjr) - 1 tab PO DAILY #30 tablet 03/15/18
[2018-03-16 07:35] LABS: BASO % 0.3 % (0-2.0); EOS % 2.2 % (0-4.5); HEMATOCRIT 32.2 % (32.4-45.2); HEMOGLOBIN 11.1 GM/dL (10.7-15.3); LYMPH % 20.4 % (8-40); MCHC 34.6 g/dl (32.0-36.0); MEAN CELL VOLUME 83.8 fl (80-96); MEAN PLT VOLUME 9.5 fl (7.5-11.1); MONO % 6.8 % (3.8-10.2); NEUT % 70.3 % (42.8-82.8); PLATELET COUNT 193 K/MM3 (134-434); RBC 3.85 M/mm3 (3.60-5.2); RDW 14.6 % (11.6-15.6); WHITE BLOOD COUNT 8.2 K/mm3 (4.0-10.0)
[2018-03-16 08:54] VITALS: BP 99/63; PULSE 61; TEMP 98
[2018-03-16] MEDS: PRENATAL VITAMINS W/ FOLIC ACID TABLET (FP) PO SCH (09:02)
[2018-03-16] MEDS: FERROUS SO4 325 MG TABLET (FP) PO SCH (09:02)
[2018-03-16] MEDS: ENOXAPARIN NA (PORCINE) 40 MG/0.4 ML DISP.SYRIN SQ SCH (09:02)
== END 2018-03-16 12:25 | disposition home or self-care (01) | DRG 540 ==
LOC: JLDR 06:20 → J3W 11:04
PROVIDERS: ADMIT Obstetrics & Gynecology; ATTEND Obstetrics & Gynecology
PROC: 10D00Z1 Extraction of Products of Conception, Low, Open Approach (ICD-10-PCS; principal; 2018-03-13)
PROC: 0UB70ZZ Excision of Bilateral Fallopian Tubes, Open Approach (ICD-10-PCS; 2018-03-13)
DX: O34.211 Maternal care for low transverse scar from previous cesarean delivery (principal); N85.8 Other specified noninflammatory disorders of uterus; Z3A.39 39 weeks gestation of pregnancy; Z30.2 Encounter for sterilization
CPT/HCPCS: 36415; 36600; 71046-TC-FY; 82803; 85025; 94010